=== PATIENT | female | born 1990 | race American Indian/Alaskan Native ===

== ENCOUNTER 2018-12-09 03:41 | Emergency (ER) | payer SELFPAY ==
[2018-12-09 04:15] LABS: Basophils % (Auto) 0.6 % (0.0-1.8); Eosinophils % (Auto) 0.5 % (0.0-4.3); Hematocrit 39.8 % (30.3-42.9); Hemoglobin 13.7 gm/dl (10.1-14.3); Lymphocytes % (Auto) 37.5 % (13.4-35.0); Mean Corpuscular HGB Conc 34 % (30-34); Mean Corpuscular Volume 87 fl (79-97); Monocytes # (Auto) 0.7 K/mm3 (0.0-0.8); Monocytes % (Auto) 8.7 % (0.0-7.3); Platelet Count 229 K/mm3 (140-440); Red Blood Count 4.57 M/mm3 (3.65-5.03); Red Cell Distribution Width 12.4 % (13.2-15.2)
[2018-12-09 04:42] LABS: Alanine Aminotransferase 18 units/L (7-56); Albumin 4.7 g/dL (3.9-5); BUN/Creatinine Ratio 9; Blood Urea Nitrogen 8 mg/dL (7-17); Calcium 9.1 mg/dL (8.4-10.2); Hemolysis Index 3
[2018-12-09 07:25] LABS: Bacteria,Urine 1+ /HPF (Negative); Bilirubin,Urine NEG (Negative); Blood,Urine NEG (Negative); Color,Urine Yellow (Yellow); Mucus,Urine FEW /HPF; Protein,Urine <15 mg/dL mg/dL (Negative); Urobilinogen,Urine < 2.0 mg/dL (<2.0)
[2018-12-09] MEDS ORDERED: IBUPROFEN PO ONE (08:03)
--- NOTE | 2018-12-09 09:25 | Ultrasound Report ---
ULTRASOUND PELVIC COMPLETE ULTRASOUND TRANSVAGINAL HISTORY: Menorrhagia for one month, right lower quadrant pain for 2 days. TECHNIQUE: Transabdominal and transvaginal imaging with color Doppler interrogation. COMPARISON: None at this facility. FINDINGS: The uterus is anteverted and measures 7.0 x 3.2 x 4.4 cm. No uterine fibroid disease is identified. T he cervix is unremarkable. The endometrial stripe measures 5 to 6 mm in thickness. No discrete abnormality. The right ovary measures 3.5 x 2.6 x 3.5 cm and contains normal-appearing follicles. The left ovary measures 4.7 x 2.2 x 3.0 cm and contains normal-appearing follicles. No evidence for pelvic cyst, mass or free fluid. IMPRESSION: Unremarkable transabdominal and transvaginal pelvic ultrasounds. Signer Name: Shree Ramirez Jr, MD Signed: 12/09/2018 9:21 AM Workstation Name: [id number]
[2018-12-09 09:29] VITALS: BP 116/79
--- NOTE | 2018-12-09 11:48 | Emergency Department Report ---
ED Female HPI - General Chief complaint: Abdominal Pain Stated complaint: VAGINAL BLEEDING/OVER A MONTH Time Seen by Provider: 12/09/18 07:36 Source: patient Mode of arrival: Ambulatory Limitations: No Limitations - History of Present Illness MD Complaint: vaginal bleeding, pelvic pain -: month(s) (1) Location: suprapubic Severity: mild, moderate Quality: cramping Consistency: intermittent Worsens with: menstrual period Associated Symptoms: vaginal bleeding. denies: vaginal discharge, abdominal pain, nausea/vomiting, loss of appetite, dysuria, rash, seizure, syncope, weak ness - Related Data Previous Rx's Medication Instructions Recorded Last Taken Type medroxyPROGESTERone ACETATE 10 mg PO DAILY #7 tablet 12/09/18 Unknown Rx [Provera] Allergies Allergy/AdvReac Type Severity Reaction Status Date / Time No Known Allergies Allergy Unverified 12/09/18 03:48 ED Review of Systems ROS: Stated complaint: VAGINAL BLEEDING/OVER A MONTH Other details as noted in HPI Comment: All other systems reviewed and negative ED Past Medical Hx - Past Medical History Previous Medical History?: No - Surgical History Past Surgical History?: No - Social History Smoking Status: Current Every Day Smoker Substance Use Type: Alcohol, Marijuana - Medications Home Medications: Home Medications Medication Instructions Recorded Confirmed Last Taken Type medroxyPROGESTERone ACETATE 10 mg PO DAILY #7 tablet 12/09/18 Unknown Rx [Provera] ED Physical Exam - General Limitations: No Limitations General appearance: alert, in no apparent distress - Head Head exam: Present: atraumatic, normocephalic - Eye Eye exam: Present: normal appearance - ENT ENT exam: Present: mucous membranes moist - Neck Neck exam: Present: normal inspection - Respiratory Respiratory exam: Present: normal lung sounds bilaterally. Absent: respiratory distress - Cardiovascular Cardiovascular Exam: Present: regular rate, normal rhythm. Absent: systolic murmur, diastolic murmur, rubs, gallop - GI/Abdominal GI/Abdominal exam: Present: soft, tenderness (mild tenderness in the suprapubic region with palpation. No flank pain. No CVA tenderness. Abdomen is soft. No distention noted.), normal bowel sounds - Extremities Exam Extremities exam: Present: normal inspection - Back Exam Back exam: Present: normal inspection - Neurological Exam Neurological exam: Present: alert, oriented X3 - Psychiatric Psychiatric exam: Present: normal affect, normal mood - Skin Skin exam: Present: warm, dry, intact, normal color. Absent: rash ED Course Vital Signs 12/09/18 12/09/18 03:45 09:19 Temperature 98.4 F 98.5 F Pulse Rate 89 75 Respiratory 14 15 Rate Blood Pressure 129/87 116/79 O2 Sat by Pulse 99 100 Oximetry ED Medical Decision Making - Lab Data Result diagrams: 12/09/18 03:49 12/09/18 03:59 - Medical Decision Making 38-year-old female with pelvic discomfort and vaginal bleeding for the last 1 month. She reports no change in her medications, and no trauma. Ultrasound is unremarkable. She had a previous history of ovarian cyst which is not present today. No Bennett myeloma were discovered. She remained afebrile. She is umber to her lower acute distress. Case discussed with Dr. Roberts whom agrees with short provera regimen Critical care attestation.: If time is entered above; I have spent that time in minutes in the direct care of this critically ill patient, excluding procedure time. ED Disposition Clinical Impression: Menorrhagia Disposition: DC-01 TO HOME OR SELFCARE Is pt being admited?: No Does the pt Need Aspirin: No Condition: Stable Instructions: Abdominal Pain (ED), Menorrhagia (ED) Prescriptions: medroxyPROGESTERone ACETATE [Provera] 10 mg PO DAILY #7 tablet Referrals: [facility] [Provider Group] - 3-5 Days
== END 2018-12-09 11:46 | disposition home or self-care (01) ==
LOC: ED 03:41
DX: N92.0 Excessive and frequent menstruation with regular cycle (principal); F17.200 Nicotine dependence, unspecified, uncomplicated; F12.10 Cannabis abuse, uncomplicated; Z79.899 Other long term (current) drug therapy
CPT/HCPCS: 36415; 76830; 76856; 80053; 81001; 84703; 85025; 87086